=== PATIENT | female | born 1975 | race Hispanic/Latino ===

== ENCOUNTER → 2017-11-29 | Day surgery (SDC) | payer OTHER ==
[2017-11-27 09:33] LABS: BASOPHILS # (AUTO) 0.1 (0.0-0.1); BASOPHILS % 0.7 % (0.0-1.0); EOSINOPHILS # (AUTO) 0.2 (0.0-0.4); EOSINOPHILS % 1.7 % (0.0-6.0); HEMATOCRIT 40.8 % (34.2-44.1); HEMOGLOBIN 13.9 g/dL (12.0-16.0); LYMPHOCYTES # (AUTO) 2.4 (1.0-3.2); LYMPHOCYTES % 27.2 % (18.0-39.1); MEAN CORPUSCULAR HGB CONC 34.1 g/dL (31-35); MEAN CORPUSCULAR VOLUME 87.9 fL (81-99); MONOCYTES # (AUTO) 0.5 (0.2-0.8); MONOCYTES % 5.9 % (4.4-11.3); NEUTROPHILS # (AUTO) 5.6 (2.1-6.9); NEUTROPHILS % 64.3 % (38.7-80.0); PLATELET COUNT 312 x10e3/uL (140-360); RED BLOOD COUNT 4.64 x10e6/uL (3.6-5.1); RED CELL DISTRIBUTION WIDTH 12.4 % (11.7-14.4)
[2017-11-27 09:50] LABS: ANION GAP 15.2 mmol/L (8-16); BLOOD UREA NITROGEN 10 mg/dL (7-26); BUN/CREATININE RATIO 11 (6-25); CALCIUM 9.7 mg/dL (8.4-10.2); CARBON DIOXIDE 24 mmol/L (22-29); CHLORIDE 109 mmol/L (98-107); CREATININE, SERUM 0.88 mg/dL (0.57-1.11); EST GLOMERULAR FILTRATION RATE > 60 ML/MIN (60-); GLUCOSE 100 mg/dL (74-118); POTASSIUM 5.2 mmol/L (3.5-5.1); SODIUM 143 mmol/L (136-145)
[~2017-11-29] MED LIST: BUPIVACAINE 0.25%/EPI 30ML SDV INJ ONE; CEFAZOLIN SOD 1 GM VIAL ONE; DEXAMETHASONE SOD PHOS INJ 4 MG/ML VIAL ONE; FENTANYL CITRATE/PF 100MCG/2 ML INJ ONE; KETOROLAC TROMETHAMINE 30 MG/ML VIAL ONE; LIDOCAINE HCL 2% LOCAL INJ 5 ML SDV VIAL INJ ONE; MIDAZOLAM HCL 2 MG/2 ML VIAL ONE; ONDANSETRON HCL INJ 2 MG/ML VIAL ONE; PROPOFOL IV EMULSION 10 MG/ML 20 ML VIAL ONE; SEVOFLURANE INHAL SOLN 250 ML PEN BTL ONE; TRAMADOL HCL 50 MG TAB ONE
--- NOTE | 2017-11-29 09:04 | Operative Report ---
DATE OF PROCEDURE: November 29, 2017 PREOPERATIVE DIAGNOSIS: Ventral hernia. POSTOPERATIVE DIAGNOSIS: Ventral hernia. PROCEDURE PERFORMED: Repair of ventral hernia with Ultra Pro hernia system, oval, medium with Proceed ventral patch, medium size. ANESTHESIA: General. ESTIMATED BLOOD LOSS: Minimal. DRAINS: None. COMPLICATIONS: None. INDICATIONS AND FINDINGS: The patient is a 42-year-old female who several weeks ago developed a bulge and pain superior to the umbilicus after lifting while moving from her house. INTRAOPERATIVE FINDINGS: The patient had an epigastric hernia located about 2 fingerbreadths superior and separate from the umbilicus. There was no umbilical herniation through a small midline fascial defect with herniation of properitoneal fat. The Proceed ventral patch was placed in the abdominal cavity covering the defect with margins on all sides. DESCRIPTION OF PROCEDURE: With the patient lying on the operative table in the supine position, and after administration of general anesthesia, she was prepped and draped for repair of ventral epigastric hernia. A vertical incision was made above the umbilicus, and just curved to the right of the umbilicus. The dissection was then carried down through skin and subcutaneous tissue until the hernia was identified and dissected free from the fascia and surrounding tissues. This consisted of properitoneal fat, which was excised with electrocautery entering the intra-abdominal cavity. At this point, we deployed the Proceed ventral patch medium size in the intra-abdominal cavity laying flat against the abdominal wall carefully preventing any interposition of the tissue or bowel between the mesh and the abdominal wall. The mesh was secured to the local tissues through the straps using a series of interrupted 2 Ethibond sutures, which were also used to secure the mesh superiorly and inferiorly in areas devoid of straps to the mesh also to prevent migration. We then closed the fascia loosely over the mesh with interrupted 2-0 Ethibond sutures also. Then we closed the subcutaneous tissues using 2-0 plain catgut for the soft tissues. The skin was closed with kristina. Then 0.25% Marcaine with epinephrine was given as a local block at the end of the case. The patient tolerated the procedure well, and was taken to the recovery room in stable condition. Job#: [id number]
== END | disposition home or self-care (01) ==
LOC: OR 05:33
PROVIDERS: ATTEND Surgery
DX: K43.9 Ventral hernia without obstruction or gangrene (principal); Z88.6 Allergy status to analgesic agent; Z01.810 Encounter for preprocedural cardiovascular examination; Z01.812 Encounter for preprocedural laboratory examination; Z68.36 Body mass index [BMI] 36.0-36.9, adult; Z87.891 Personal history of nicotine dependence
CPT/HCPCS: 36415 ×2; 49560; 49568; 80048; 81025; 84132; 85025; 88302; 93005; C1781; J0690; J1100; J1885; J2001; J2250; J2405; 88304